=== PATIENT | female | born 1960 | race Caucasian/White ===

== ENCOUNTER 2018-07-29 08:10 | Day surgery (SDC) | payer MEDICARE, OTHER ==
[2018-07-29] MEDS ORDERED: PROPOFOL 20 ML ×2 (09:58→10:31)
[2018-07-29] MEDS ORDERED: MIDAZOLAM 1 MG/ML 2 ML INJ (09:58)
== END 2018-07-29 10:55 | disposition home or self-care (01) ==
LOC: GIL 08:10
DX: K29.70 Gastritis, unspecified, without bleeding (principal); K21.0 Gastro-esophageal reflux disease with esophagitis; K44.9 Diaphragmatic hernia without obstruction or gangrene; K26.9 Duodenal ulcer, unspecified as acute or chronic, without hemorrhage or perforation; M19.90 Unspecified osteoarthritis, unspecified site; E78.5 Hyperlipidemia, unspecified; I10 Essential (primary) hypertension; J44.9 Chronic obstructive pulmonary disease, unspecified
CPT/HCPCS: 43239; 88305